=== PATIENT | female | born 1970 | race Caucasian/White ===

== ENCOUNTER 2023-04-11 11:02 | Emergency (ER) | payer SELFPAY ==
[~2023-04-11] VITALS: Ht 175 cm; Wt 104.3 kg
[2023-04-11] MEDS ORDERED: morphine INJ 4 MG/ML 1 ML (VIAL/SYRINGE) IVP ONE (11:30)
--- NOTE | 2023-04-11 11:37 | ED Respiratory ---
General Chief Complaint: Respiratory Problems Stated Complaint: VOMITING BLOOD | SOB Nursing Triage Note: PT PRESENTS TO ED VIA POV FROM HOME WITH COMPLAINTS OF L KNEE PAIN X 2 DAYS, DIZZINESS, CHEST TIGHTNMESS, SOB, COUGHING THAT LEADS TO VOMITING. PT NOTICED RED STREAKS IN HER EMESIS THIS AM. Source: patient Exam Limitations: no limitations History of Present Illness Date Seen by Provider: Apr 11, 2023 Time Seen by Provider: 11:22 Initial Comments 52-year-old female presents to the ER with complaint of pain under her left breast which started this morning at 1 AM. She reports that she had a PE in February which was diagnosed when she was living in [place]. She is currently taking Xarelto for this. She states that this pain is similar to when she had the PE. She also reports pain in the back of her left knee and calf area. She reports shortness of air. She reports that she has been coughing which results in vomiting. She reports there is blood, but she is uncertain if the blood is from coughing or vomiting. Patient reports it is a mix of bright red and brown color, states it does not not look like coffee grounds. She reports she has been having diarrhea for the last couple of days, reports 3 episodes today. Denies any blood in her stool. Patient recently moved here from [place], states she took a bus to get here. When she was admitted for the PE, she also had a low potassium level of 1.0. Past medical history includes PE, hyperl ipidemia, hypertension, depression, anxiety, osteoarthritis, GERD with erosions, degenerative disc disease. She currently takes spironolactone, atenolol, Xarelto, Protonix, diazepam, and Seroquel. Allergies and Home Medications Allergies Coded Allergies: No Known Drug Allergies (Unverified , 04/11/23) Patient Home Medication List Home Medication List Reviewed: Yes Review of Systems Review of Systems Constitutional: see HPI Past Ygutcoq-Vskuus-Uecbsa Hx Patient Social History Tobacco Use?: Yes Smoking Status: Former Smoker Use of E-Cig and/or Vaping dev: No Substance use?: Yes Substance type: Marijuana Substance frequency: Once in a while Alcohol Use?: No Pt feels they are or have been: No Past Medical History Surgery/Hospitalization HX: pmh: htn, pe, high chol, acid reflux, Physical Exam Vital Signs - First Documented 04/11/23 11:19 Temp 35.4 Pulse 86 Resp 18 B/P (MAP) 143/105 (118) Pulse Ox 99 Capillary Refill : Less Than 3 Seconds Height: '" Weight: lbs. oz. kg; 34.00 BMI Method: General Appearance: WD/WN, no apparent distress Neck: supple, normal inspection Respiratory: lungs clear, normal breath sounds, no respiratory distress, no accessory muscle use, other (Tenderness to palpation under left breast) Cardiovascular: regular rate, rhythm, no edema Gastrointestinal: normal bowel sounds, non tender, soft Extremities: normal range of motion, normal inspection, calf tenderness (Left leg) Neurologic/Psychiatric: alert, normal mood/affect Skin: normal color, warm/dry Progress/Results/Core Measures Suspected Sepsis SIRS Temperature: Pulse: 86 Respiratory Rate: 18 Laboratory Tests 04/11/23 11:38: White Blood Count 7.1 Blood Pressure 143 /105 Mean: 118 Laboratory Tests 04/11/23 11:38: Creatinine 0.80, INR Comment 1.1, Platelet Count 296, Total Bilirubin 0.4 Results/Orders Lab Results Laboratory Tests Test 04/11/23 11:38 Range/Units White Blood Count 7.1 4.3-11.0 10^3/uL Red Blood Count 4.57 3.80-5.11 10^6/uL Hemoglobin 14.7 11.5-16.0 g/dL Hematocrit 43 35-52 % Mean Corpuscular Volume 95 80-99 fL Mean Corpuscular Hemoglobin 32 25-34 pg Mean Corpuscular Hemoglobin Concent 34 32-36 g/dL Red Cell Distribution Width 13.7 10.0-14.5 % Platelet Count 296 130-400 10^3/uL Mean Platelet Volume 10.6 9.0-12.2 fL Immature Granulocyte % (Auto) 0 % Neutrophils (%) (Auto) 56 42-75 % Lymphocytes (%) (Auto) 34 12-44 % Monocytes (%) (Auto) 7 0-12 % Eosinophils (%) (Auto) 2 0-10 % Basophils (%) (Auto) 1 0-10 % Neutrophils # (Auto) 4.0 1.8-7.8 10^3/uL Lymphocytes # (Auto) 2.4 1.0-4.0 10^3/uL Monocytes # (Auto) 0.5 0.0-1.0 10^3/uL Eosinophils # (Auto) 0.2 0.0-0.3 10^3/uL Basophils # (Auto) 0.1 0.0-0.1 10^3/uL Immature Granulocyte # (Auto) 0.0 0.0-0.1 10^3/uL Prothrombin Time 14.8 H 12.2-14.7 SEC INR Comment 1.1 0.8-1.4 Activated Partial Thromboplast Time 32 24-35 SEC D-Dimer 0.43 0.00-0.49 UG/ML Sodium Level 139 135-145 MMOL/L Potassium Level 3.8 3.6-5.0 MMOL/L Chloride Level 108 H 98-107 MMOL/L Carbon Dioxide Level 22 21-32 MMOL/L Anion Gap 9 5-14 MMOL/L Blood Urea Nitrogen 6 L 7-18 MG/DL Creatinine 0.80 0.60-1.30 MG/DL Estimat Glomerular Filtration Rate 88 BUN/Creatinine Ratio 8 Glucose Level 106 H 70-105 MG/DL Calcium Level 9.0 8.5-10.1 MG/DL Corrected Calcium 9.0 8.5-10.1 MG/DL Magnesium Level 2.0 1.6-2.4 MG/DL Total Bilirubin 0.4 0.1-1.0 MG/DL Aspartate Amino Transf (AST/SGOT) 19 5-34 U/L Alanine Aminotransferase (ALT/SGPT) 9 0-55 U/L Alkaline Phosphatase 49 40-136 U/L Troponin I < 0.028 <0.028 NG/ML Total Protein 7.0 6.4-8.2 GM/DL Albumin 4.0 3.2-4.5 GM/DL My Orders Orders - IRMA CIFUENTES [facility] COMPLIANCE COORDINATOR Cbc With Automated Diff (04/11/23 11:29) Magnesium (04/11/23 11:29) Chest 1 View, Ap/Pa Only (04/11/23 11:29) Ekg Tracing (04/11/23 11:29) Comprehensive Metabolic Panel (04/11/23 11:29) Protime With Inr (04/11/23 11:29) Partial Thromboplastin Time (04/11/23 11:29) Monitor-Rhythm Ecg Trace Only (04/11/23 11:29) Ed Iv/Invasive Line Start (04/11/23 11:29) Fibrin Degradation Products (04/11/23 11:29) Troponin I Sean (04/11/23 11:29) Morphine Injection (Morphine Injection (04/11/23 11:30) Us Venous Lower Ext Lt (04/11/23 11:30) Ct Angio Chest W (R/O Pe) (04/11/23 12:26) Iohexol Injection (Omnipaque 350 Mg/Ml 1 (04/11/23 13:00) Ns (Ivpb) 100 Ml (Sodium Chloride 0.9% 1 (04/11/23 13:00) Medications Given in ED Current Medications Medications Dose Ordered Sig/Vik Route Start Time Stop Time Status Last Admin Dose Admin Iohexol 100 ml ONCE ONCE IV 04/11/23 13:00 04/11/23 13:01 DC 04/11/23 13:00 95 ML Morphine Sulfate 4 mg ONCE ONCE IVP 04/11/23 11:30 04/11/23 11:31 DC 04/11/23 11:46 4 MG Sodium Chloride 100 ml ONCE ONCE IV 04/11/23 13:00 04/11/23 13:01 DC 04/11/23 13:00 70 ML Vital Signs/I&O 04/11/23 04/11/23 11:19 13:55 Temp 35.4 Pulse 86 69 Resp 18 16 B/P (MAP) 143/105 (118) 137/107 Pulse Ox 99 98 Capillary Refill : Less Than 3 Seconds Blood Pressure Mean: 118 Progress Note : Progress Note Patient seen and evaluated, resting comfortably in bed, no acute distress. Based on exam and symptoms, differential diagnosis includes but not limited to PE, pneumonia, IL, DVT. Work-up initiated including CBC, CMP, coags, troponin, D-dimer, magnesium, chest x-ray, EKG. 1227 Labs reviewed. CBC grossly normal. CMP shows slightly elevated chloride 108, troponin normal. Magnesium normal. Coags normal. D-dimer 0.43. Reviewed. Shows popliteal cyst. Negative for DVT. Wells score for PE places patient at a moderate risk for PE. Will go ahead and order CT angio chest PE rule out. 1337 CT and chest x-ray reviewed. Chest x-ray negative for pulmonary embolism. Negative for any other acute cardiopulmonary process. There is a 4 mm right upper lobe pulmonary micronodule. Hepatic stenosis also noted. Chest x-ray shows no acute cardiopulmonary process. Results discussed with patient. Will have patient follow-up with Dr. Loo, surgery, for upper endoscopy due to possible blood in vomit. Will also provide orthopedic referral for popliteal cyst. Patient informed of micronodule in lung. Discharge instructions and return precautions provided. ECG Initial ECG Impression Date: Apr 11, 2023 Initial ECG Impression Time: 11:36 Initial ECG Rate: 78 Initial ECG Rhythm: Normal Sinus Initial ECG Intervals: Normal Initial ECG Impression: Nonspecific Changes Initial ECG Comparisson: No Previous ECG Available Comment Insignificant Q waves in lead I, aVL, V2. No ST elevation or T wave inversion. Diagnostic Imaging Diagonstic Imaging: Ultrasound Plain Films/CT/US/NM/MRI: leg Comments [facility] [place] [place] NAME: SHELLEY BURGOS [facility] REC#: [id number] PT STATUS: REG ER : 1970 PHYSICIAN: IRMA CIFUENTES APRN ADMIT DATE: 04/11/23/ER Draft Date of Exam:04/11/23 US VENOUS LOWER EXT LT PROCEDURE: US left lower extremity venous. TECHNIQUE: Multiple real-time grayscale images were obtained over the left lower extremity in various projections. Additional duplex Doppler and color Doppler images were also obtained. INDICATION: Pain behind the left knee. FINDINGS: There is no evidence of left lower extremity DVT. The left lower extremity deep venous system demonstrates normal compressibility with normal response to augmentation and Valsalva. There is a popliteal cyst present measuring 3.6 x 1.1 x 2.8 cm. IMPRESSION: 1. No evidence of left lower extremity DVT. 2. Popliteal cyst. Dictated on workstation # [id number] Dict: 04/11/23 1228 Trans: 04/11/23 1232 [id number] Interpreted by: JULIO LOGAN MD Electronically signed by: Diagonstic Imaging: Xray Plain Films/CT/US/NM/MRI: chest Comments [facility] [place] [place] NAME: SHELLEY BURGOS MED REC#: [id number] PT STATUS: REG ER : 1970 PHYSICIAN: IRMA CIFUENTES APRN ADMIT DATE: 04/11/23/ER Draft Date of Exam:04/11/23 CHEST 1 VIEW, AP/PA ONLY INDICATION: Chest pain. Shortness of air. Cough. Hemoptysis. COMPARISON: None FINDINGS: Single frontal view of the chest demonstrates normal heart size and pulmonary vascularity. The lungs are well aerated and clear. No large pleural effusion or pneumothorax is seen. The visualized osseous structures show no acute abnormalities. IMPRESSION: 1. No acute cardiopulmonary process. Dictated on workstation # [id number] Dict: 04/11/23 1253 Trans: 04/11/23 1255 [id number] Interpreted by: KAELA LUCERO MD Electronically signed by: Ambargonsraj Imaging: CT Plain Films/CT/US/NM/MRI: chest Comments [facility] [place] [place] NAME: SHELLEY BURGOS [facility] REC#: [id number] PT STATUS: REG ER : 1970 PHYSICIAN: IRMA CIFUENTES APRN ADMIT DATE: 04/11/23/ER Draft Date of Exam:04/11/23 CT ANGIO CHEST W (R/O PE) INDICATION: History of pulmonary embolus. Persistent worsening shortness of air. Hemoptysis. Chest pain. COMPARISON: None. TECHNIQUE: Routine postcontrast CTA of the chest was performed. Contrast was injected intravenously and timed for optimal opacification of the arterial structures. Multiplanar and 3-D reformats were also created and reviewed. Auto Exposure Controls were utilized during the CT exam to meet ALARA standards for radiation dose reduction. FINDINGS: No abnormal intraluminal filling defect is seen within the pulmonary arteries to the 1st subsegmental division. Thoracic aorta is normal in course and caliber. By NASCET criteria, there is no focal significant stenosis. There is no evidence of dissection or aneurysm. Heart size is within normal limits. There is no large pericardial effusion. No pathologically enlarged or morphologically abnormal adenopathy is seen within the mediastinum, kartik, nor axillae. Hypodense right thyroid lesion measures 2.4 cm (image 8, series 2). Evaluation of the lung ibarra is degraded by motion artifact, but lungs are grossly clear. 4 mm juxtapleural micronodule is present within the anterior margins of the right upper lobe (image 61, series 3). No other suspicious pulmonary nodules or masses are identified. Osseous structures show no acute abnormalities. Age-related degenerative changes are present. Included portions of the upper abdomen show hypodense appearance of the liver consistent with hepatic steatosis. IMPRESSION: 1. No pulmonary embolus. 2. No other acute cardiopulmonary process. 3. 4 mm right upper lobe pulmonary micronodule. If the patient is in a high-risk category, such as history of smoking, one-year follow-up could be performed to ensure stability. 4. Hepatic steatosis. Dictated on workstation # [id number] Dict: 04/11/23 1301 Trans: 04/11/23 1315 [id number] Interpreted by: KAELA LUCERO MD Electronically signed by: Departure Impression Primary Impression: Vomiting blood Additional Impressions: Popliteal cyst Coughing up blood Pulmonary nodule Shortness of breath Disposition: 01 HOME, SELF-CARE Condition: Stable Departure-Patient Inst. Decision time for Depature: 13:42 Referrals: [facility]/GREGG MALHOTRA JUSTIN S MD ZAFUTA, MICHAEL P MD Patient Instructions: Gastrointestinal Bleeding Add. Discharge Instructions: Follow-up with Dr. Loo, surgery, for a possible upper endoscopy to assess for bleeding from stomach or esophagus. Follow-up with Dr. Espinoza or Dr. Snow, orthopedics, for the popliteal cyst. Continue taking your Protonix. Continue taking your Xarelto, unless bleeding becomes severe. If this occurs, return or see your primary care provider. Follow-up with your primary care provider regarding the pulmonary nodule. Return for any new, concerning, or worsening symptoms. All discharge instructions reviewed with patient and/or family. Voiced understanding. Copy Copies To 1: [facility]/K Copies To 2: GREGG LOO BRITTANY R APRN Apr 11, 2023 11:37
[2023-04-11 11:46] LABS: BASOPHILS # (AUTO) 0.1 10^3/uL (0.0-0.1); BASOPHILS % (AUTO) 1 % (0-10); EOSINOPHILS # (AUTO) 0.2 10^3/uL (0.0-0.3); EOSINOPHILS % (AUTO) 2 % (0-10); HEMATOCRIT 43 % (35-52); HEMOGLOBIN 14.7 g/dL (11.5-16.0); LYMPHOCYTES # (AUTO) 2.4 10^3/uL (1.0-4.0); LYMPHOCYTES % (AUTO) 34 % (12-44); MEAN CORPUSCULAR HEMOGLOBIN 32 pg (25-34); MEAN CORPUSCULAR HGB CONC 34 g/dL (32-36); MEAN CORPUSCULAR VOLUME 95 fL (80-99); MEAN PLATELET VOLUME 10.6 fL (9.0-12.2); MONOCYTES # (AUTO) 0.5 10^3/uL (0.0-1.0); MONOCYTES % (AUTO) 7 % (0-12); NEUTROPHILS % (AUTO) 56 % (42-75); PLATELET COUNT 296 10^3/uL (130-400); WHITE BLOOD COUNT 7.1 10^3/uL (4.3-11.0)
[2023-04-11 11:54] LABS: CHLORIDE 108 MMOL/L (98-107); POTASSIUM 3.8 MMOL/L (3.6-5.0); SODIUM 139 MMOL/L (135-145)
[2023-04-11 11:56] LABS: GLUCOSE 106 MG/DL (70-105)
[2023-04-11 11:57] LABS: CARBON DIOXIDE 22 MMOL/L (21-32); INR 1.1 (0.8-1.4); PROTHROMBIN TIME PATIENT 14.8 SEC (12.2-14.7)
[2023-04-11 12:00] LABS: ALKALINE PHOSPHATASE 49 U/L (40-136); FIBRIN DEGRADATION PRODUCTS 0.43 UG/ML (0.00-0.49); GFR ESTIMATED 88
[2023-04-11 12:01] LABS: BUN/CREATININE RATIO 8
[2023-04-11 12:03] LABS: ALANINE AMINOTRANSFERASE 9 U/L (0-55)
[2023-04-11 12:07] LABS: BILIRUBIN,TOTAL 0.4 MG/DL (0.1-1.0)
--- NOTE | 2023-04-11 12:32 | Diagnostic Imaging Report ---
PROCEDURE: US left lower extremity venous. TECHNIQUE: Multiple real-time grayscale images were obtained over the left lower extremity in various projections. Additional duplex Doppler and color Doppler images were also obtained. INDICATION: Pain behind the left knee. FINDINGS: There is no evidence of left lower extremity DVT. The left lower extremity deep venous system demonstrates normal compressibility with normal response to augmentation and Valsalva. There is a popliteal cyst present measuring 3.6 x 1.1 x 2.8 cm. IMPRESSION: 1. No evidence of left lower extremity DVT. 2. Popliteal cyst. Dictated by: Dictated on workstation # [id number]
--- NOTE | 2023-04-11 12:56 | Diagnostic Imaging Report ---
INDICATION: Chest pain. Shortness of air. Cough. Hemoptysis. COMPARISON: None FINDINGS: Single frontal view of the chest demonstrates normal heart size and pulmonary vascularity. The lungs are well aerated and clear. No large pleural effusion or pneumothorax is seen. The visualized osseous structures show no acute abnormalities. IMPRESSION: 1. No acute cardiopulmonary process. Dictated by: Dictated on workstation # [id number]
[2023-04-11] MEDS ORDERED: NS 100 ML (IVPB) BAG IV ONE (13:00)
[2023-04-11] MEDS ORDERED: IOHEXOL 350 MG/ML 100 ML (OMNIPAQUE 350) VIAL IV ONE (13:00)
--- NOTE | 2023-04-11 13:16 | Diagnostic Imaging Report ---
INDICATION: History of pulmonary embolus. Persistent worsening shortness of air. Hemoptysis. Chest pain. COMPARISON: None. TECHNIQUE: Routine postcontrast CTA of the chest was performed. Contrast was injected intravenously and timed for optimal opacification of the arterial structures. Multiplanar and 3-D reformats were also created and reviewed. Auto Exposure Controls were utilized during the CT exam to meet ALARA standards for radiation dose reduction. FINDINGS: No abnormal intraluminal filling defect is seen within the pulmonary arteries to the 1st subsegmental division. Thoracic aorta is normal in course and caliber. By NASCET criteria, there is no focal significant stenosis. There is no evidence of dissection or aneurysm. Heart size is within normal limits. There is no large pericardial effusion. No pathologically enlarged or morphologically abnormal adenopathy is seen within the mediastinum, kartik, nor axillae. Hypodense right thyroid lesion measures 2.4 cm (image 8, series 2). Evaluation of the lung ibarra is degraded by motion artifact, but lungs are grossly clear. 4 mm juxtapleural micronodule is present within the anterior margins of the right upper lobe (image 61, series 3). No other suspicious pulmonary nodules or masses are identified. Osseous structures show no acute abnormalities. Age-related degenerative changes are present. Included portions of the upper abdomen show hypodense appearance of the liver consistent with hepatic steatosis. IMPRESSION: 1. No pulmonary embolus. 2. No other acute cardiopulmonary process. 3. 4 mm right upper lobe pulmonary micronodule. If the patient is in a high-risk category, such as history of smoking, one-year follow-up could be performed to ensure stability. 4. Hepatic steatosis. Dictated by: Dictated on workstation # [id number]
[2023-04-11 13:55] VITALS: BP 137/107
== END 2023-04-11 13:55 | disposition home or self-care (01) ==
LOC: ER 11:05
DX: K92.0 Hematemesis (principal); R04.2 Hemoptysis; R91.1 Solitary pulmonary nodule; I26.99 Other pulmonary embolism without acute cor pulmonale; M71.22 Synovial cyst of popliteal space [Baker], left knee; Z79.01 Long term (current) use of anticoagulants; Z87.891 Personal history of nicotine dependence; Z79.899 Other long term (current) drug therapy
CPT/HCPCS: 36415; 71045; 71275; 80053; 83735; 84484; 85025; 85379; 85610; 85730; 93005; 93041